=== PATIENT | female | born 1985 | race Caucasian/White ===

== ENCOUNTER → 2020-01-22 10:58 | Outpatient (BNVA) | payer SELFPAY | PROVIDERS: PCP Family Medicine; Visit Provider Nurse Practitioner Family | DX: N39.0 Urinary tract infection, site not specified (principal); Z68.36 Body mass index [BMI] 36.0-36.9, adult; F17.290 Nicotine dependence, other tobacco product, uncomplicated; Z71.89 Other specified counseling; R30.0 Dysuria | CPT/HCPCS: 81000 ==

== ENCOUNTER 2022-05-15 15:05 | Emergency (ER) | payer BC, SELFPAY ==
[2022-05-15 15:26] VITALS: BP 117/74; PULSE 94; RESP 14; TEMP 37; O2SAT 97
--- NOTE | 2022-05-15 15:37 | ED_ITS ---
HPI - Animal Bite General: Chief Complaint: Animal Bite Stated Complaint: bit by dog Time Seen by Provider: 05/15/22 15:37 History of Present Illness: 36-year-old rashid comes in today for injury says sustained from a a client in an assisted living facility. The dog became aggressive and bit the patient to the mid abdomen. Abrasions are noted to the abdomen. Patient's tetanus shot was up-to-date. Dogs immunizations were up-to-date. Review of Systems General: Reports: 10 or more systems reviewed and unremarkable except in HPI and below Skin/Breast: Reports: new lesions (Abrasions abdomen from dog bite) PFS ED PFSH: Social History (Updated 01/22/20 @ 10:40 by Barbara Beckford LPN) Smoking and tobacco status: current every day smoker e-cigarettes Second hand smoke exposure: No Physical Exam Const: COMMON NORMALS: alert HENMT: COMMON NORMALS: atraumatic HEAD & SCALP: atraumatic Neck/C-Spine: COMMON NORMALS: full ROM Resp: COMMON NORMALS: normal respiratory effort Cardio: COMMON NORMALS: regular rate RATE: regular rate GI: INSPECTION: Yes other (Patterned abrasions to the mid abdomen with mild ecchymosis) Extremity: COMMON NORMALS: normal to inspection Neuro: SENSORIUM/ORIENTATION: Yes alert Skin: TRAUMA: abrasion (Circular patterned abrasion with mild ecchymosis) Course Vital Signs: Vital signs: Vital Signs Temperature 98.6 F 05/15/22 15:26 Pulse Rate 94 05/15/22 15:26 Respiratory Rate 14 05/15/22 15:26 Blood Pressure 117/74 05/15/22 15:26 Pulse Oximetry 97 05/15/22 15:26 Oxygen Delivery Ne thod 05/15/22 15:26 MDM - Animal Bite Medical Decision Making 36-year-old rashid comes in today for complaints of dog bite. On exam patient has some pattern abrasions to the mid abdomen with some light ecchymosis. No active bleeding. No deep injury is noted. Patient reports his tetanus is up-to-date. Dog's immunization status was current. Differential diagnosis needs for prophylaxis vaccine, need for prophylaxis antibiotic, dog bite, laceration. Immunizations were up-to-date for dog and patient. We will go ahead and start on Augmentin 1 tablet twice a day for 7 days for prophylaxis antibiotic. Patient reports understanding of care plan need for follow-up or return to the ER. Discharge Plan Discharge Patient Disposition: Home Clinical Impression: Dog bite Qualifiers: Encounter type: initial encounter Qualified Code(s): W54.0XXA - Bitten by dog, initial encounter Condition: Stable Prescriptions: New amoxicillin-pot clavulanate 875-125 mg tablet 1 tab PO BID Qty: 14 0RF No Action fluoxetine [Prozac] 40 mg capsule 40 mg PO QAM Qty: 30 1RF Rx Instructions: one capsule every morning trazodone 50 mg tablet 50 mg PO .QHS Qty: 30 1RF Rx Instructions: one tablet daily at bedtime atorvastatin 40 mg tablet 40 mg PO QDAY testosterone cypionate 100 mg/mL oil See Rx Instructions IM .Q1Week Rx Instructions: 0.8 ml IM .Q1Week; ciprofloxacin HCl [Cipro] 500 mg tablet 500 mg PO BID 7 Days Qty: 14 0RF Discharge Orders: Discharge ED (Routine); Ordered 05/15/22 Ordered By: Champ Alanis Referrals: Bianka Hector MD [Primary Care Provider] - Discharge Diet: Usual diet Discharge Activity: Increase activity as tolerated Patient Instructions: Animal Bite (ED) Activity Restrictions/Additional Instructions: Take antibiotics as directed. Drink plenty of fluids with medications. Use acetaminophen and ibuprofen for pain. You may apply some bacitracin ointment to the wound twice a day as needed for further antibiotic coverage. Return to ED for new concerns or worsening symptoms. Coding Level of Care Code ED Marketing Designer for Samantha Gomez
[2022-05-15] MEDS: amoxicillin-clav 875-125 mg Tablet 1 TAB PO (15:45)
== END 2022-05-15 15:49 | disposition home or self-care (01) ==
PROVIDERS: Emergency Provider Nurse Practitioner Family; PCP Family Medicine
DX: S31.159A Open bite of abdominal wall, unspecified quadrant without penetration into peritoneal cavity, initial encounter (principal); W54.0XXA Bitten by dog, initial encounter; F17.290 Nicotine dependence, other tobacco product, uncomplicated
CPT/HCPCS: 99283